=== PATIENT | male | born 1960 | race African-American/Black ===

== ENCOUNTER 2023-03-06 13:50 | Inpatient (IN) | payer OTHER ==
[~2023-03-06] VITALS: Ht 180.3 cm; Wt 78.6 kg
[~2023-03-06 13:50] MED LIST: PENI500T2; PRAV20TA; TRIA1CAP35
[2023-03-06] MEDS ORDERED: lisinopril (13:56)
[2023-03-06 15:22] LABS: BASOPHILS % 0.4 % (0.0-2.0); EOSINOPHILS % 0.8 % (0.0-5.0); HEMATOCRIT. 49.3 % (42.0-52.0); HEMOGLOBIN. 16.5 g/dL (14.0-18.0); LYMPHOCYTES % 16.2 % (20.0-50.0); MEAN CORPUSCULAR HEMOGLOBIN 30.8 pg (28.0-32.0); MEAN CORPUSCULAR VOLUME 92.4 fL (80.0-94.0); MEAN PLATELET VOLUME 8.4 fl (7.4-10.4); MONOCYTES % 6.5 % (2.0-8.0); NEUTROPHILS % 76.1 % (40.0-76.0); PLATELET 156 x1000/uL (130-400); RED BLOOD CELL COUNT 5.33 mill/uL (4.7-6.1); RED CELL DISTRIBUTION WIDTH 14.3 % (11.6-14.6)
[2023-03-06 15:47] LABS: CHLORIDE 109 mEq/L (98-107)
[2023-03-06 15:58] LABS: ETHANOL BLOOD < 10 mg/dL
[2023-03-06] MEDS ORDERED: ONDANSETRON HCL 4MG/2ML INJ IV ONE (16:15)
[2023-03-06] MEDS ORDERED: FAMOTIDINE 20MG/2ML VIAL IV ONE (16:15)
[2023-03-06] MEDS ORDERED: MAGNESIUM/ALUMINUM HYDROXIDE/SIMETHICONE 30ML UDC PO ONE (16:15)
[2023-03-06 17:15] LABS: CLARITY URINE CLEAR (CLEAR); COLOR URINE YELLOW (YELLOW); KETONES URINE NEGATIVE (NEGATIVE); LEUKOCYTE ESTERASE URINE NEGATIVE (NEGATIVE); NITRITE URINE NEGATIVE (NEGATIVE); OCCULT BLOOD URINE NEGATIVE (NEGATIVE); PH URINE 6.5 (4.5-8.0); PROTEIN URINE 1+ (NEGATIVE); SPECIFIC GRAVITY URINE 1.021 (1.005-1.030); UROBILINOGEN URINE 0.2 E.U./dL (0.2-1.0)
[2023-03-06 17:42] LABS: *AMPHETAMINES SCREEN URINE NEGATIVE (NEGATIVE); *BARBITURATES SCREEN URINE NEGATIVE (NEGATIVE); *BENZODIAZEPINES SCREEN URINE NEGATIVE (NEGATIVE); *COCAINE SCREEN URINE NEGATIVE (NEGATIVE); CANNABINOID URINE SCREEN PRESUMTIVE POSITIVE (NEGATIVE); METHADONE URINE SCREEN NEGATIVE (NEGATIVE); OPIATES URINE SCREEN NEGATIVE (NEGATIVE); PHENCYCLIDINE URINE SCREEN NEGATIVE (NEGATIVE)
[2023-03-06] MEDS ORDERED: POTASSIUM CHLORIDE 20MEQ TABLET SR PO NR (19:30)
[2023-03-06 23:19] VITALS: BP 154/97
[2023-03-06 23:27] VITALS: BP 154/97
[2023-03-07] MEDS ORDERED: ACETAMINOPHEN 325MG TABLET PO PRN (00:45)
[2023-03-07] MEDS ORDERED: ONDANSETRON HCL 4MG/2ML INJ IV PRN (00:45)
[2023-03-07 08:00] VITALS: BP 129/88
[2023-03-07] MEDS ORDERED: LISI40TA13 PO (08:02)
[2023-03-07] MEDS ORDERED: LOSA1TAB34 MT (08:02)
[2023-03-07] MEDS ORDERED: PRAV10TA35 PO (08:02)
[2023-03-07 08:03] LABS: BASOPHILS % 1.2 % (0.0-2.0); EOSINOPHILS % 4.6 % (0.0-5.0); HEMATOCRIT. 41.5 % (42.0-52.0); HEMOGLOBIN. 14.3 g/dL (14.0-18.0); LYMPHOCYTES % 17.7 % (20.0-50.0); MEAN CORPUSCULAR HEMOGLOBIN 31.2 pg (28.0-32.0); MEAN CORPUSCULAR VOLUME 90.2 fL (80.0-94.0); MONOCYTES % 7.9 % (2.0-8.0); NEUTROPHILS % 68.6 % (40.0-76.0); PLATELET 174 x1000/uL (130-400); RED CELL DISTRIBUTION WIDTH 14.1 % (11.6-14.6)
[2023-03-07] MEDS ORDERED: ASPI-1497 MT (08:04)
[2023-03-07 08:16] LABS: CHLORIDE 109 mEq/L (98-107)
[2023-03-07 08:29] LABS: HDL CHOLESTEROL 47 mg/dL (40-59); LDL CHOLESTEROL 90 mg/dL (5-100)
[2023-03-07 08:33] LABS: HEPATITIS B SURFACE ANTIGEN NEGATIVE
[2023-03-07] MEDS: ASPIRIN 81MG TABLET PO SCH (08:42)
[2023-03-07] MEDS: LOSARTAN POTASSIUM 50 MG TABLET PO SCH (08:42)
[2023-03-07] MEDS: ATORVASTATIN CALCIUM 20MG TABLET PO SCH (08:42)
[2023-03-07] MEDS: ENOXAPARIN 40MG/0.4ML SYR SUBCUT SCH (08:43)
[2023-03-07 12:00] VITALS: BP_SYST 145; BP_SYST 146; BP_SYST 151; BP_DIAS 92; BP_DIAS 93; BP_DIAS 97
[2023-03-07 16:00] VITALS: BP_SYST 155; BP_SYST 160; BP_SYST 167; BP_DIAS 102; BP_DIAS 88; BP_DIAS 94
[2023-03-07] MEDS ORDERED: DIPHENHYDRAMINE 25MG CAPSULE PO PRN (18:15)
[2023-03-07 20:00] VITALS: BP_SYST 151; BP_SYST 161; BP_SYST 166; BP_DIAS 100; BP_DIAS 94; BP_DIAS 97
[2023-03-07] MEDS: CLONIDINE 0.1MG TABLET PO PRN (20:24)
[2023-03-07] MEDS: FAMOTIDINE 20MG TABLET PO SCH (20:24)
[2023-03-07] MEDS: AMLODIPINE 10MG TABLET PO SCH (20:24)
[2023-03-08 04:00] VITALS: BP_SYST 129; BP_SYST 139; BP_SYST 142; BP_DIAS 82; BP_DIAS 89; BP_DIAS 94
[2023-03-08 08:00] VITALS: BP_SYST 144; BP_SYST 150; BP_SYST 156; BP_DIAS 101; BP_DIAS 92; BP_DIAS 94
[2023-03-08] MEDS: ATORVASTATIN CALCIUM 20MG TABLET PO SCH (08:53)
[2023-03-08] MEDS: LOSARTAN POTASSIUM 50 MG TABLET PO SCH (08:53)
[2023-03-08] MEDS: ASPIRIN 81MG TABLET PO SCH (08:54)
[2023-03-08] MEDS: ENOXAPARIN 40MG/0.4ML SYR SUBCUT SCH (08:54)
[2023-03-08] MEDS: AMLODIPINE 10MG TABLET PO SCH (08:54)
[2023-03-08 12:00] VITALS: BP_SYST 138; BP_SYST 144; BP_SYST 146; BP_DIAS 87; BP_DIAS 91; BP_DIAS 96
[2023-03-08] MEDS: FAMOTIDINE 20MG TABLET PO SCH ×2 (13:29→21:43)
[2023-03-08 16:00] VITALS: BP_SYST 147; BP_SYST 156; BP_SYST 157; BP_DIAS 100; BP_DIAS 88; BP_DIAS 97
[2023-03-08 20:00] VITALS: BP_SYST 120; BP_SYST 145; BP_SYST 150; BP_SYST 166; BP_DIAS 103; BP_DIAS 75; BP_DIAS 89; BP_DIAS 97
[2023-03-08] MEDS: CLONIDINE 0.1MG TABLET PO PRN (21:43)
[2023-03-09] VITALS: BP_SYST 117; BP_SYST 123; BP_SYST 134; BP_DIAS 72; BP_DIAS 81; BP_DIAS 82
[2023-03-09 04:00] VITALS: BP 128/78
[2023-03-09 08:00] VITALS: BP_SYST 134; BP_SYST 139; BP_SYST 163; BP_DIAS 83; BP_DIAS 90; BP_DIAS 94
[2023-03-09] MEDS ORDERED: METOPROLOL TARTRATE 5MG/5ML VIAL IV NR (08:00)
[2023-03-09] MEDS ORDERED: NITROGLYCERIN SPRAY/4.9GM CAN TL ONE (08:45)
[2023-03-09] MEDS ORDERED: HYDROCHLOROTHIAZIDE 12.5MG CAPSULE PO SCH (09:00)
[2023-03-09] MEDS ORDERED: IOHEXOL-350 100 ML BOTTLE ONE (09:34)
[2023-03-09] MEDS: AMLODIPINE 10MG TABLET PO SCH (10:52)
[2023-03-09] MEDS: LOSARTAN POTASSIUM 50 MG TABLET PO SCH (10:53)
[2023-03-09] MEDS: ATORVASTATIN CALCIUM 20MG TABLET PO SCH (10:53)
[2023-03-09] MEDS: ASPIRIN 81MG TABLET PO SCH (10:53)
[2023-03-09] MEDS: FAMOTIDINE 20MG TABLET PO SCH (10:53)
[2023-03-09] MEDS: ENOXAPARIN 40MG/0.4ML SYR SUBCUT SCH (10:53)
[2023-03-09 12:07] VITALS: BP 135/85
[2023-03-09 12:54] VITALS: BP 135/85
== END 2023-03-09 14:15 | disposition home or self-care (01) | DRG 312 ==
LOC: ER 14:24 → EDBEDREQ 20:37 → 7WST 22:08
PROVIDERS: ADMIT Internal Medicine; ATTEND Internal Medicine
DX: R55 Syncope and collapse (principal); I95.9 Hypotension, unspecified; E78.5 Hyperlipidemia, unspecified; G90.9 Disorder of the autonomic nervous system, unspecified; I10 Essential (primary) hypertension; L50.9 Urticaria, unspecified; F17.210 Nicotine dependence, cigarettes, uncomplicated; R07.89 Other chest pain; K08.409 Partial loss of teeth, unspecified cause, unspecified class; L29.9 Pruritus, unspecified; Z79.82 Long term (current) use of aspirin; Z79.899 Other long term (current) drug therapy
CPT/HCPCS: 36415; 70551; 71045; 75571; 80048; 80053; 80061; 80305; 80320; 81003; 83735; 83880; 84484; 85025; 85379; 86803; 87340; 93005; 93306; 93970; 99285; J1650; J2405; J3490; Q9967; G0480